=== PATIENT | female | born 1940 | race Caucasian/White ===

== ENCOUNTER 2021-10-26 06:18 | Inpatient (IN) | payer MEDICARE, OTHER ==
[~2021-10-26] VITALS: Ht 167.6 cm; Wt 79.5 kg
[2021-10-26] VITALS (12 sets, daily range): BP systolic 101–183; BP diastolic 59–76
[~2021-10-26 06:18] MED LIST: AMLO-186 PO; ANAS1TAB47 PO; ASCO500T4 PO; HYDR12.575 PO; HYDROmorphone 2 MG/ML INJ. IVP PRN; IV RINGERS,LACTATED 1000ML 1,000 ML IV SCH; LEVO100T5 PO; LUTE1CAP5 PO; MECL12.582 PO; MELA3TAB4 PO; MORPHINE SULFATE 2 MG/ML INJ. IVP PRN; MULT-496 PO; OMEP40CA7 PO; PROCHLORPERAZINE 10 MG/2 ML VIAL. IVP PRN; VALS160T3 PO; VENL150C6 PO; ceFAZolin SODIUM IV Push 1 GM VIAL. IVP PRN; fentaNYL PF VIAL 100 MCG/2 ML VIAL IVP PRN
[2021-10-26] MEDS ORDERED: ROCURONIUM 50 MG/5 ML VIAL. ONE (06:52)
[2021-10-26] MEDS ORDERED: PROPOFOL 10 MG/ML (20ML) VIAL. IV ONE (06:52)
[2021-10-26] MEDS ORDERED: LIDOCAINE 2% PF 5 ML VIAL. ONE (06:52)
[2021-10-26] MEDS ORDERED: ONDANSETRON PF 4 MG/2 ML VIAL. ONE (06:52)
[2021-10-26] MEDS ORDERED: fentaNYL PF VIAL 100 MCG/2 ML VIAL ONE ×2 (06:52→09:01)
[2021-10-26] MEDS ORDERED: DEXAMETHASONE SOD PHOS 4 MG/ML VIAL ONE (06:52)
[2021-10-26] MEDS ORDERED: IOHEXOL 300 MG/ML 50 ML VIAL. ONE (07:03)
[2021-10-26] MEDS ORDERED: BUPIVACAINE-EPI 0.5% 30 ML VIAL KIT. ONE (07:03)
[2021-10-26] MEDS ORDERED: SURGICEL HEMOSTAT 4X8 EACH. ONE (07:03)
[2021-10-26] MEDS ORDERED: SCOPOLAMINE 1.5MG PATCH. TD ONE (07:15)
[2021-10-26] MEDS ORDERED: ePHEDrine PF IN SALINE 50 MG/10 ML SYRINGE. IV ONE (08:06)
[2021-10-26] MEDS ORDERED: GLYCOPYRROLATE 1 MG/5 ML VIAL. ONE (08:17)
[2021-10-26] MEDS ORDERED: NEOSTIGMINE METHYLSULFATE 5 MG/5 ML SYRINGE. ONE (08:17)
[2021-10-26] MEDS ORDERED: PROCHLORPERAZINE 10 MG/2 ML VIAL. ONE (09:02)
[2021-10-26] MEDS: fentaNYL PF VIAL 100 MCG/2 ML VIAL IVP PRN ×2 (09:05→09:32)
--- NOTE | 2021-10-26 09:09 | PDOC4 ---
Operative Note Operative Note Operative Note: Preoperative Diagnosis: Symptomatic cholelithiasis Postoperative Diagnosis: Same Procedure: Laparoscopic cholecystectomy with intraoperative cholangiogram Surgeons: Fredy Anesthesia: GenBubba Estimated Blood Loss: 10 mL Specimen: Gallbladder to pathology Drains: None Complications: None Indications: The patient is a 80-year-old female who is referred with symptomatic cholelithiasis. Surgical treatment was offered by means of a laparoscopic cholecystectomy. The risks of surgery were discussed which include bleeding, infection, bile duct injury, bile leak, pain, the potential for additional surgeries or procedures. The patient understands and would like to proceed. Description: The patient was taken to the operating room and laid supine on the operating table. General anesthesia was performed. The abdomen was prepped with ChloraPrep and draped in a standard surgical fashion. A small infraumbilical incision was made with a scalpel. The Veress needle was then inserted and a pneumoperitoneum was then created. A 5 mm trocar was then i nserted and the laparoscope was introduced. There were significant adhesions from prior abdominal surgery. In the upper midabdomen an 11 mm trocar was inserted. Through this trocar were able to see clear space in the right abdomen for placement of the camera. Another 5 mm trocar was placed in the right lower quadrant. The camera port was moved to this location. In the right upper quadrant two 2.3 mm mini lap graspers were inserted. The gallbladder was retracted cephalad. The cystic duct was dissected free from surrounding tissues. One clip was placed on the duct near the gallbladder junction. An opening was made in the duct and a cholangiocatheter placed within and secured with a clip. Using contrast dye and fluoroscopy an intraoperative cholangiogram was performed that appeared unremarkable. The clip and catheter were then withdrawn. Three clips were placed on the cystic duct and it was divided. The cystic artery was then identified, dissected free, doubly clipped and divided as well. The gallbladder was then mobilized away from the liver with cautery. The gallbladder was then placed in an endoscopic bag and extracted at the superior trocar site. The fascia there was closed with an 0 Vicryl suture and infiltrated with 0.5% marcaine. All blood and irrigation fluid was suctioned and hemostasis was good. The remaining ports were removed and the pneumoperitoneum was relieved. The skin incisions were closed using 4-0 Monocryl suture. Steri-Strips and dressings were then applied. The patient t olerated the procedure well and was sent to the recovery room in stable condition. At the end of the case all counts were correct. RHONDA CHAND MD Oct 26, 2021 09:09
[2021-10-26] MEDS ORDERED: HYDROcodone/APAP 5/325MG 1 TAB TABLET PO PRN (09:15)
[2021-10-26] MEDS ORDERED: ONDANSETRON PF 4 MG/2 ML VIAL. IVP PRN (09:15)
[2021-10-26] MEDS ORDERED: MECLIZINE HCL 12.5 MG TABLET. PO PRN (09:15)
[2021-10-26] MEDS ORDERED: NALOXONE 0.4 MG/ML VIAL. IV PRN (09:15)
[2021-10-26] MEDS ORDERED: 0.9 % SODIUM CHLORIDE 10 ML DISP.SYRIN. IV PRN (09:15)
[2021-10-26] MEDS ORDERED: MORPHINE SULFATE 2 MG/ML INJ. IV PRN (09:15)
[2021-10-26] MEDS: IV 1/2 NORMAL SALINE 1,000 ML IV SCH ×2 (09:15→22:35)
[2021-10-26] MEDS: IV NORMAL SALINE 1000ML BAG 1,000 ML IV SCH ×2 (09:50→11:06)
[2021-10-26] MEDS: LOSARTAN POTASSIUM 50 MG TABLET. PO SCH (11:00)
[2021-10-26] MEDS: VENLAFAXINE 50 MG TABLET. PO SCH ×3 (11:00→22:57)
[2021-10-26] MEDS: hydroCHLOROthiazide 12.5 MG TABLET PO SCH (11:00)
[2021-10-26] MEDS: MULTIVITAMIN I-VITE TABLET. PO SCH (11:00)
[2021-10-26] MEDS: ASCORBIC ACID 500 MG TABLET PO SCH (11:00)
[2021-10-26] MEDS: MULTIVITAMIN with MINERAL TABLET. PO SCH (11:00)
[2021-10-26] MEDS: ANASTROZOLE 1 MG TABLET PO SCH (11:00)
[2021-10-26] MEDS: PANTOPRAZOLE 40 MG TABLET.DR. PO SCH (11:30)
[2021-10-26] MEDS ORDERED: NON FORMULARY ITEM (Melatonin 3 MG) PO SCH (21:00)
[2021-10-27 03:01] VITALS: BP 116/66
[2021-10-27] MEDS ORDERED: LEVOTHYROXINE 100 MCG TABLET PO SCH (06:00)
[2021-10-27] MEDS: PANTOPRAZOLE 40 MG TABLET.DR. PO SCH (06:21)
[2021-10-27 07:00] VITALS: BP 126/72
[2021-10-27] MEDS: ASCORBIC ACID 500 MG TABLET PO SCH (08:26)
[2021-10-27] MEDS: VENLAFAXINE 50 MG TABLET. PO SCH (08:27)
[2021-10-27] MEDS: hydroCHLOROthiazide 12.5 MG TABLET PO SCH (08:27)
[2021-10-27] MEDS: LOSARTAN POTASSIUM 50 MG TABLET. PO SCH (08:28)
[2021-10-27] MEDS: ANASTROZOLE 1 MG TABLET PO SCH (08:33)
--- NOTE | 2021-10-27 08:33 | PDOC ---
SURGICAL PROGRESS NOTE DATE: 10/27/21 TIME: 08:32 Subjective tolerating diet minimal pain no nausea Vital Signs Vital Signs Date Time Temp Pulse Resp B/P (MAP) Pulse Ox O2 Delivery O2 Flow Rate FiO2 10/27/21 08:27 80 126/72 10/27/21 07:00 98.4 18 96 Room Air 98.4 10/26/21 09:50 2.0 I&O Intake and Output 10/27/21 06:59 Intake Total 1350 ml Output Total 410 ml Balance 940 ml Intake Oral 350 ml IV Total 1000 ml Output Urine Total 400 ml Estimated Blood Loss 10 ml # Voids 1 General: Alert, Oriented X3, Cooperative Abdomen: Soft, Other (ND, lap sites intact ) Labs Laboratory Tests Test 10/26/21 06:30 POC SARS CoV-2 Antigen Negative (NEGATIVE) Assessment/Plan s/p [place] dc home Justicifation of Admission Dx: Justifications for Admission: Justification of Admission Dx: Yes Comments: cholelithiasis ZACH CHAVEZ APRN Oct 27, 2021 08:33
[2021-10-27] MEDS ORDERED: HYDR-2761 PO (08:35)
[2021-10-27] MEDS: MULTIVITAMIN I-VITE TABLET. PO SCH (08:36)
[2021-10-27] MEDS: MULTIVITAMIN with MINERAL TABLET. PO SCH (08:36)
--- NOTE | 2021-10-27 08:37 | DISCH ---
DISCHARGE INSTRUCTIONS Condition on Discharge Condition on Discharge: Stable Activity After Discharge Activity Instructions for Disc: Activity as tolerated Lifting Instructions after Dis: No heavy lifting, No pulling or pushing Driving Instructions after Dis: Do not drive today Diet after Discharge Diet after Discharge: Low Fat Wound Incision Care Wound/Incision Care: May get incision wet, No wound care needed Contacting the after DC Call your doctor for: Concerns you may have Follow-Up Follow up with: Dr Daniel 2 weeks, call to schedule [phone] ZACH CHAVEZ APRN Oct 27, 2021 08:37
[2021-10-27 11:00] VITALS: BP 116/74
[2021-10-27] MEDS: IV 1/2 NORMAL SALINE 1,000 ML IV SCH (11:55)
--- NOTE | 2021-10-27 12:17 | RAD ---
INDICATION: Cholecystectomy. Intraoperative cholangiogram. Fluoro for procedure. IMPRESSION: Fluoroscopy was utilized by the clinical service to assist with their procedure. There are 3 saved images/series. The limited saved images show contrast opacification of the common bile duct and duodenum via the cys tic duct stump. 30 seconds of fluoroscopy time was used. This dictation is for the usage of fluoroscopy only. Please see the clinical service's procedure note for detail on the procedure. Electronically signed by: Alexander Alas MD (10/27/2021 12:15 PM) [id number]
--- NOTE | 2021-10-27 14:07 | NUR ---
pt discharged to home, accompanied by son, taken out by wheelchair
--- NOTE | 2021-10-27 16:08 | PATHOLOGY ---
[facility] Accession Number: [id number] . 01 Material submitted: . gallbladder - GALLBLADDER AND CONTENTS . 01 Clinical history: . SYMPTOMATIC CHOLELITHIASIS LAP LIVAN WITH GRAMS . 02 Diagnosis: Gallbladder, laparoscopic cholecystectomy: - Cholelithiasis. - Polypoid cholesterolosis, focal. - Chronic cholecystitis. LBQ 10/27/2021 1415 Local . 02 Comment: There is no evidence of malignancy. (JPM/db; 10/27/2021) . 02 Electronically signed: . Usama Stein MD, Pathologist NPI- [id number] . 01 Gross description: . Fixative: Formalin Labeled: Gallbladder and contents Specimen received: A previously disrupted gallbladder specimen with a clipped cystic duct margin Dimensions: 7.5 x 3.1 x 3.1 cm Serosa: Green-burgess, smooth and wrinkled with a mild amount of attached adipose tissue Lymph node: Not identified Mucosa: Velvety, bile-stained Average wall thickness: 0.2 cm Calculi: Multiple present displaying a bright yellow and multifaceted in appearance and ranging in size from 0.1-0.5 cm, and measuring 6.0 x 4.5 x 1.0 cm in aggregate dimensions Abnormalities: A single, possible polypoid excrescence measuring 0.1 cm . A1- Strategic Advisor body, fundus, and the cystic duct margin. ([facility]; 10/26/2021) NRI/NRI 10/27/2021 1413 Local . 02 Pathologist provided ICD-10: K80.10, K82.4 . 02 CPT . 237472 Specimen Comment: A courtesy copy of this report has been sent to [phone], [phone] Specimen Comment: [id number] Specimen Comment: Report sent to / DR MASCORRO Specimen Comment: A duplicate report has been generated due to demographic updates. Performed at: 01 [facility] [id number] [id number] MD Fernie Guardado MD Phone: [phone] Performed at: 02 [facility] [address] [place], [place] [id number] MD Usama Stein MD Phone: [phone]
--- NOTE | 2021-11-07 10:00 | PDOC3 ---
Discharge Summary Visit Information Date of Admission: Oct 26, 2021 Date of Discharge: Oct 27, 2021 Admitting Diagnosis: Symptomatic cholelithiasis Final Diagnosis Symptomatic cholelithiasis Brief Hospital Course Allergies Allergies Coded Allergies Type Severity Reaction Last Updated Verified hydrocodone Adverse Reaction Intermediate Nausea and Vomiting 10/26/21 Yes Brief Hospital Course Ms. Coreas is a 80 old female who underwent Laparoscopic cholecystectomy with intraoperative cholangiogram. Postoperatively tolerating diet, pain controlled, ambulating and ready for discharge home Discharge Information Condition at Discharge: Stable Follow Up: Weeks (2) Disposition/Orders: D/C to Home Scheduled Amlodipine Besylate (Amlodipine Besylate) 5 Mg Tablet, 5 MG PO DAILY for high blood pressure , (Reported) Entered as Reported by: JODI WADE on 10/25/211257 Last Taken: Unknown Dose on 10/26/21509 Last Action: Continued on 10/26/21912 by RHONDA CHAND Anastrozole (Arimidex) 1 Mg Tablet, 1 MG PO DAILY for breast cancer , (Reported) Entered as Reported by: JODI WADE on 10/25/211257 Last Action: Continued on 10/26/21912 by RHONDA CHAND Ascorbic Acid (Vitamin C) 500 Mg Tablet, 500 MG PO DAILY for vitmamin, (Reported ) Entered as Reported by: JODI WADE on 10/25/211257 Last Taken: Unknown Dose on 10/25/21 Last Action: Continued on 10/26/21912 by RHONDA CHAND Hydrochlorothiazide (Hydrochlorothiazide Capsule ) 12.5 Mg Capsule, 12.5 MG PO DAILY for DIURETIC, Ref 0 (Reported) Entered as Reported by: JODI WADE on 10/25/211257 Last Taken: Unknown Dose on 10/25/21 Last Action: Continued on 10/26/21912 by RHONDA CHAND Levothyroxine Sodium (Levothyroxine Sodium) 100 Mcg Tablet, 100 MCG PO DAILYAC for THYROID SUPPLEMENT, #30 Ref 0 (Reported) Entered as Reported by: JODI WADE on 10/25/211257 Last Taken: Unknown Dose on 10/26/21509 Last Action: Continued on 10/26/21912 by RHONDA CHAND Lutein/Zeaxanthin (Ocuvite Lutein 25-5 mg Softgel) 1 Each Capsule, 1 EACH PO DAILY for eye vitamin, (Reported) Entered as Reported by: JODI WADE on 10/25/211257 Last Taken: Unknown Dose on 10/25/21 Last Action: Converted on 10/26/21912 by RHONDA CHAND Melatonin (Melatonin) 3 Mg Tablet, 3 MG PO HS for sleep, (Reported) Entered as Reported by: JODI WADE on 10/25/211257 Last Taken: Unknown Dose on 10/25/21 Last Action: Converted on 10/26/21912 by RHONDA CHAND Multivitamin (Daily Value) 1 Each Tablet, 1 EACH PO DAILY for vitamin, (Reported) Entered as Reported by: JODI WADE on 10/25/211257 Last Taken: Unknown Dose on 10/25/21 Last Action: Converted on 10/26/21912 by RHONDA CHAND Omeprazole (Omeprazole) 40 Mg Capsule.dr, 40 MG PO DAILY for gerd, (Reported) Entered as Reported by: JODI WADE on 10/25/211257 Last Taken: Unknown Dose on 10/26/21509 Last Action: Converted on 10/26/21912 by RHONDA CHAND Valsartan (Diovan) 160 Mg Tablet, 160 MG PO DAILY for high blood pressure , (Reported) Entered as Reported by: JODI WADE on 10/25/211257 Last Taken: Unknown Dose on 10/26/21509 Last Action: Converted on 10/26/21912 by RHONDA CHAND Venlafaxine Hcl (Venlafaxine Hcl Er) 150 Mg Cap.er.24h, 150 MG PO DAILY for depression , (Reported) Entered as Reported by: JODI WADE on 10/25/211257 Last Taken: Unknown Dose on 10/25/21 Last Action: Converted on 10/26/21912 by RHONDA CHAND Scheduled PRN Hydrocodone Bit/Acetaminophen (Hydrocodone-Apap 5-325 ) 1 Tab Tablet, 1 TAB PO PRN Q4HRS PRN for MILD PAIN 1-3, #20 Ref 0 Prescribed by: Amelie Bentley on 10/27/21 0835 Meclizine Hcl (Meclizine Hcl) 12.5 Mg Tablet, 12.5 MG PO PRN PRN for DIZZINESS, (Reported) Entered as Reported by: JODI WADE on 10/25/211257 Last Action: Continued on 10/26/21 0913 by RHONDA CHAND Justicifation of Admission Dx: Justifications for Admission: Justification of Admission Dx: Yes AMELIE BENTLEY APRN Nov 07, 2021 10:00
== END 2021-10-27 13:45 | disposition home or self-care (01) | DRG 419 ==
LOC: SURG 06:18 → 4 NORTH 09:10
PROVIDERS: ADMIT Surgery; ATTEND Surgery
PROC: BF131ZZ Fluoroscopy of Gallbladder and Bile Ducts using Low Osmolar Contrast (ICD-10-PCS; 2021-10-26)
PROC: 0FT44ZZ Resection of Gallbladder, Percutaneous Endoscopic Approach (ICD-10-PCS; principal; 2021-10-26 07:30)
DX: K80.20 Calculus of gallbladder without cholecystitis without obstruction (principal); I10 Essential (primary) hypertension; K21.9 Gastro-esophageal reflux disease without esophagitis; E03.9 Hypothyroidism, unspecified; Z88.8 Allergy status to other drugs, medicaments and biological substances; Z20.822 Contact with and (suspected) exposure to COVID-19; Z85.3 Personal history of malignant neoplasm of breast; Z82.49 Family history of ischemic heart disease and other diseases of the circulatory system; Z79.899 Other long term (current) drug therapy
CPT/HCPCS: 74300; 88304; A4213; A4314; A4452; A4657; A4930; A6219; C1887; J0690; J0780; J1100; J2270; J2405; J2704; J2710; J3010; J3490; J7030; Q9967; G0378